=== PATIENT | male | born 1995 | race Hispanic/Latino ===

== ENCOUNTER 2024-04-25 10:38 | Emergency (ER) | payer SELFPAY ==
[~2024-04-25] VITALS: Ht 160 cm; Wt 68.0 kg
[2024-04-25 12:11] VITALS: BP 119/71
[2024-04-25 12:15] VITALS: BP 114/76
[2024-04-25] MEDS ORDERED: ORPHENADRINE CITRATE 30 MG/ML AMP IM ONE (12:25)
[2024-04-25] MEDS ORDERED: KETOROLAC TROMETHAMINE 30 MG/ML SDV IM ONE (12:25)
[2024-04-25] MEDS ORDERED: NAPROXEN500 MG PO (14:00)
[2024-04-25] MEDS ORDERED: METHOCARBAMOL500 MG PO (14:00)
[2024-04-25] MEDS ORDERED: MEDDOSEPAK PO (14:00)
[2024-04-25 14:16] VITALS: BP 114/76
== END 2024-04-25 14:20 | disposition home or self-care (01) | DRG 552 ==
LOC: ED 10:38
DX: M54.50 Low back pain, unspecified (principal); K59.00 Constipation, unspecified
CPT/HCPCS: J2360